=== PATIENT | female | born 1980 | race Caucasian/White ===

== ENCOUNTER → 2016-05-11 | Outpatient (CLI) | payer OTHER ==
[2016-05-11 19:25] VITALS: BP 122/85
== END ==
LOC: MHUC 16:46
PROVIDERS: ATTEND Physician Assistant
DX: J40 Bronchitis, not specified as acute or chronic (principal)
CPT/HCPCS: 99213

== ENCOUNTER → 2016-07-19 | Outpatient (CLI) | payer OTHER ==
[~2016-07-19] MED LIST: AGM500T PO; AMOX1TAB12 PO; AMOX500T2 PO; AMOX875T2 PO; CETI10TA20 PO; FAMO-119 PO; FLUC150T PO; IBP200T PO; LORA10CA PO; METH4TAB27 PO; PRED20TA PO
[2016-07-19 17:36] VITALS: BP 121/88
--- NOTE | 2016-07-19 17:36 | Urgent Care T Sheet Gen (E) ---
Intake General Temperature (Fahrenheit): 98.8 Pulse: 72 Blood Pressure Systolic: 121 Blood Pressure Diastolic: 88 Respirations: 18 SPO2: 98 Chief Complaint: UC Ear/Nose/Throat Complaint Description of Symptoms This 35 y/o woman is here today because of sinus pressure she has had in the right side of her face since last tuesday. She does have allergies and is taking both Zyrtec and Zantac twice a day as per her legal secretary. She feels some discomfort behind her right ear. She did have some drainage this morning from her nose. She denies a sore throat at present. She has not had fever. Her PCP is Dr. Shah. She states she cannot tolerate using nasal steroids. Source: Patient Exam Limitations: No limitations History of Present Illness Onset & Duration: Days Timing: Still present Associated Symptoms: Sinus congestion Recent Trauma: No Similar Sympotms Previously: No Allergies: Coded Allergies: Sulfa (Sulfonamide Antibiotics) (Verified Allergy, 05/14/13) Home Meds Active Scripts Fluconazole (Diflucan)150 Mg [id number] Mg PO DAILY #1 TAB Prov:SWEAT,XIANG PA 07/19/16 Methylprednisolone (Medrol Dosepack)21 Tab/Pkt Doawlr50 Tab PO DAILY Inflammation #21 PKT Ref 0 Prov:SWEAT,XIANG PA 07/19/16 Fluconazole (Diflucan)150 Mg [id number] Mg PO DAILY #2 TAB Prov:GM TAVERA PA 05/11/16 Amoxicillin/Clavulanate Potassium (Augmentin 875mg/125mg)1 Each Tablet1 Tab PO BID Infection #20 TAB Ref 0 Prov:GM TAVERA PA 05/11/16 Fluconazole (Diflucan)150 Mg Gljbks628 Mg PO ONCE #1 TAB Prov:TRESA OGLESBY PA 04/02/16 Prednisone 20 Mg Pbsogy13 Mg PO DAILY #6 TAB Prov:TRESA OGLESBY PA 04/02/16 Amoxicillin/Clavulanate Potassium (Augmentin 875mg/125mg)1 Each Tablet1 Tab PO BID #14 TAB Ref 0 Prov:TRESA OGLESBY PA 04/02/16 Fluconazole (Diflucan)150 Mg Jlyusd768 Mg PO ONCE #1 TAB Prov:TRESA OGLESBY PA 01/12/16 Prednisone 20 Mg Ndosct36 Mg PO BID #6 TAB Prov:TRESA OGLESBY PA 01/12/16 Amoxicillin/Clavulanate Potassium (Augmentin 500mg/125mg)1 Each Tablet1 Each PO BID Infection #14 TAB Ref 0 Prov:MENDELTRESA Pat ARROYO 01/12/16 Amoxicillin 875 Mg Yaxjus869 Mg PO BID #20 TAB Prov:JIGNESH DONAHUE MD 02/15/15 Reported Medications Ibuprofen 200 Mg [id number] Mg PO PRN 08/09/14 Respiratory Constitutional Symptoms: No syptoms reported EENTM: See HPI Ear pain (right)No Nose Congestion, No Throat pain Respiratory: No symptoms reported Cardiovascular: No symptoms reported Gastrointestinal/Abdominal: No symptoms reported Genitourinary: No symptoms reported Musculoskeletal: No symptoms reported Skin: No symptoms reported Neurological: No symptoms reported Hematologic/Lymphatic: No symptoms reported Immunologic/Allergies: No symptoms reported All Other Systems Reviewed Remaining Systems: All other systems reviewed with negative findings Past Hjgcuut-Obfydi-Eujinz Hx Patient's Social History Alcohol Use: Denies Use Smoking Status: Never smoker Recent foreign travel: No Surgeries/Hospitalizations Hospitalization/Surgery Hx: D AND C Respiratory Respiratory History: None Cardiovascular Cardiovascular History: None Reproductive System Sexually Transmitted Diseases: No Gastrointestinal GI/Endocrine History: None Diabetes Diabetes: No HEENT Impaired Vision: None Hearing Impaired: None Psychosocial Behavior Disorders: None Physical Exam Physical Exam General Appearance: WD/WN No apparent distress Eyes, Ears, Nose, Throat Ex: PERRL/EOMI Normal ENT inspection TMs normal Pharynx normal Neck Exam: Non tender Full range of motion Supple Normal inspection Normal thyroid Respiratory Exam: Chest non-tender Lungs clear Normal breath sounds No respiratory distress No accessory muscles used Cardiovascular Exam: Regular rate, rhythm No edema No gallop No JVD No murmur Skin Exam: Normal color Warm/dry/intact No rashes No embolic lesions Neurologic/Psychiatric Exam: Oriented times 4 CN's II-X nml No motor deficits No sensory deficits Mood/affect nml Departure Urgent Care Impression Chief Complaint: UC Ear/Nose/Throat Complaint Impression: Primary Impression: Seasonal allergies Additional Impression: Eustachian tube dysfunction Qualified Code: H69.81 - Other specified disorders of Eustachian tube, right ear Departure Disposition: 01 HOME OR SELF-CARE Condition: Stable Referrals: BRUNILDA SHAH MD (PCP) Additional Instructions: Additionally to the medrol dose pack I have ordered I also informed the patient she could try some short acting sudafed as well which she would have to ask the pharmacist for. She mentioned to me that when she has used oral steroids in the past she has needed something for yeast so I went ahead and ordered the Diflucan as well but told her only to take it if and when she became symptomatic. I also told her if symptoms did not improve to follow up with Dr. Shah. Scripts Fluconazole (Diflucan)150 Mg [id number] Mg PO DAILY #1 TAB Prov:XIANG COLEMAN 07/19/16 Methylprednisolone (Medrol Dosepack)21 Tab/Pkt Epzwrd09 Tab PO DAILY Inflammation #21 PKT Ref 0 Prov:XIANG COLEMAN 07/19/16 End of report . XIANG COLEMAN Jul 19, 2016 17:17
== END ==
LOC: MHUC 16:45
PROVIDERS: ATTEND Physician Assistant
DX: H69.81 Other specified disorders of Eustachian tube, right ear (principal); J30.2 Other seasonal allergic rhinitis
CPT/HCPCS: 99213